=== PATIENT | male | born 1955 | race Caucasian/White ===

== ENCOUNTER 2020-08-04 07:46 | Day surgery (SDC) | payer BC ==
[~2020-08-04 07:46] MED LIST: Lactated Ringers 1,000 ML IV SCH
[2020-08-04] MEDS ORDERED: Propofol 200 MG/20 ML SDV ONE ×2 (08:02→09:23)
[2020-08-04] MEDS ORDERED: Midazolam 1 MG/ML 2 ML SDV ONE (08:02)
[2020-08-04] MEDS ORDERED: fentaNYL 100 MCG/2 ML SDV ONE (08:02)
--- NOTE | 2020-08-04 08:31 | PCM.PREANE ---
Preanesthetic Assessment - Anesthesia/Transfusion/Family Hx Anesthesia History: Prior Anesthesia Without Reaction Family History of Anesthesia Reaction: No Transfusion History: No Prior Transfusion(s) Intubation History: Unknown - Review of Systems General: No Symptoms Pulmonary: No Symptoms Cardiovascular: No Symptoms Gastrointestinal: Other (h/o tubular adenoma '14, redundant colon unable to complate colonoscopy) Neurological: No Symptoms Other: Reports: None - Physical Assessment Height: 5 ft 8 in Weight: 83.461 kg ASA Class: 2 Mental Status: Alert & Oriented x3 Airway Class: Mallampati = 2 Dentition: Reports: Partial (partial - fixed) Thyro-Mental Finger Breadths: 3 Mouth Opening Finger Breadths: 3 ROM/Head Extension: Full Lungs: Clear to Auscultation, Normal Respiratory Effort Cardiovascular: Regular Rate, Regular Rhythm - Allergies Allergies/Adverse Reactions: Allergies Allergy/AdvReac Type Severity Reaction Status Date / Time amoxicillin Allergy Diarrhea Verified 08/01/20 09:08 - Blood Blood Available: No - Anesthesia Plan Pre-Op Medication Ordered: None - Acknowledgements Anesthesia Type Planned: MAC Pt an Appropriate Candidate for the Planned Anesthesia: Yes Alternatives and Risks of Anesthesia Discussed w Pt/Guardian: Yes Pt/Guardian Understands and Agrees with Anesthesia Plan: Yes PreAnesthesia Questionnaire HEENT History: Reports: Cataract, Other (See Below) Other HEENT History: uses reading glasses, has upper permanent partial denture Cardiovascular History: Reports: Afib (h/o A. fib. - OK since ablation), Hypertension Respiratory History: Reports: Sleep Apnea Other Respiratory History: uses CPAP every night Gastrointestinal History: Reports: Colon Polyp, Other (See Below) (redundant colon) Musculoskeletal History: Reports: Back Pain, Chronic Neurological History: Reports: Concussion - Past Surgical History Head Surgeries/Procedures: Reports: None HEENT Surgical History: Reports: Cataract Surgery, LASIK, Naso-Sinus Surgery, Tonsillectomy Other HEENT Surgeries/Procedures: repair of deviated septum Cardiovascular Surgical History: Reports: Cardiac Ablation Other Cardiovascular Surgeries/Procedures: has cardiac ablation for A-Fib GI Surgical History: Reports: Colonoscopy (x2) - SUBSTANCE USE Tobacco Use Status *Q: Former Tobacco User Tobacco Use Within Last Twelve Months: No Recreational Drug Use History: No - HOME MEDS Home Medications: Home Meds Aspirin 325 mg PO DAILY 07/22/20 [History] Cholecalciferol (Vitamin D3) [Vitamin D3] 1,000 unit PO DAILY 07/22/20 [History] Glucosam/Chond/Collagen/Hyalur [Glucosamine Chondroitin] 1 cap PO DAILY 07/22/20 [History] atenoloL [Atenolol] 50 mg PO QAM 07/22/20 [History] - CURRENT (IN HOUSE) MEDS Current Meds: Current Medications Lactated Ringer's (Ringers, Lactated) 1,000 mls @ 125 mls/hr IV ASDIRECTED GEORGE Discontinued Medications Fentanyl (Sublimaze) Confirm Administered Dose 100 mcg .ROUTE .STK-MED ONE Stop: 08/04/20 08:03 Lidocaine HCl (Xylocaine-Mpf 1%) Confirm Administered Dose 5 ml .ROUTE .STK-MED ONE Stop: 08/04/20 08:09 Midazolam HCl (Versed 1 Mg/Ml) Confirm Administered Dose 2 mg .ROUTE .STK-MED ONE Stop: 08/04/20 08:03 Propofol (Diprivan 20 Ml) Confirm Administered Dose 400 mg .ROUTE .STK-MED ONE Stop: 08/04/20 08:03
--- NOTE | 2020-08-04 09:46 | PCM.OPNOTE ---
- General Post-Op/Procedure Note Date of Surgery/Procedure: 08/04/20 Operative Procedure(s): Colonoscopy and polypectomy Findings: colon polyps, dictation #[id number] Pre Op Diagnosis: Family history of colon cancer. History of colon polyps Post-Op Diagnosis: colon polyps Anesthesia Technique: Moderate Sedation Primary Surgeon: Juan Bullock Pathology: colon polyps Complications: None Condition: Good
--- NOTE | 2020-08-04 10:14 | PCM.POSTAN ---
POST ANESTHESIA ASSESSMENT - MENTAL STATUS Mental Status: Alert, Oriented - VITAL SIGNS Vital Signs: Last Vital Signs Temp 36.6 C 08/04/20 08:15 Pulse 69 08/04/20 10:01 Resp 10 L 08/04/20 10:01 BP 120/84 08/04/20 10:01 Pulse Ox 92 L 08/04/20 10:01 - RESPIRATORY Respiratory Status: Respiratory Rate WNL, Airway Patent, O2 Saturation Stable - CARDIOVASCULAR CV Status: Pulse Rate WNL, Blood Pressure Stable - GASTROINTESTINAL GI Status: No Symptoms - PAIN Pain Score: 0 - POST OP HYDRATION Hydration Status: Adequate & Stable - OBSERVATIONS Free Text/Narrative:: No anesthesia problems
--- NOTE | 2020-08-04 10:44 | PCM48HPAN ---
Post Anesthesia Note - EVALUATION WITHIN 48HRS OF ANESTHETIC Vital Signs in Normal Range: Yes Patient Participated in Evaluation: Yes Respiratory Function Stable: Yes Airway Patent: Yes Cardiovascular Function Stable: Yes Hydration Status Stable: Yes Pain Control Satisfactory: Yes Nausea and Vomiting Control Satisfactory: Yes Mental Status Recovered: Yes Vital Signs: Last Vital Signs Temp 36.6 C 08/04/20 08:15 Pulse 69 08/04/20 10:01 Resp 10 L 08/04/20 10:01 BP 120/84 08/04/20 10:01 Pulse Ox 92 L 08/04/20 10:01 - COMMENTS/OBSERVATIONS Free Text/Narrative:: No anesthesia problems
--- NOTE | 2020-08-04 14:52 | OR ---
SURGEON: NAVYA BUCKLEY MD DATE OF PROCEDURE: 08/04/2020 PREOPERATIVE DIAGNOSES: 1. History of colon polyps. 2. Family history of colon cancer. PROCEDURE PERFORMED: 1. Colonoscopy. 2. Snare polypectomy. 3. Cold biopsy polypectomy. PRIMARY SURGEON: Navya Buckley MD ANESTHESIA: General with anesthesiologist. EXTENT OF COLONOSCOPY: To the cecum. WITHDRAWAL TIME: 20 minutes. LIMITATIONS: None. BOWEL PREP: Very good. REASON FOR PROCEDURE: The patient is a pleasant 65-year-old gentleman whose last colonoscopy was in 2013 when he had a tubular adenoma removed. They were unable to get to the cecum on this colonoscopy, so he did have an imaging done which showed a redundant colon. There is a family history of colon cancer with a sister with colon cancer in her 50s. Denies any blood in the stool. PROCEDURE IN DETAIL: Physical examination was performed. Major risks and benefits associated with the procedure explained to the patient in detail. I did explain that we may not get to the end unable to get there in the past. The patient verbalized understanding of the same. The patient was then connected to appropriate monitoring devices and IV started. EKG, pulse, pulse oximetry, blood pressure, and capnography were monitored throughout the entire procedure. Continuous oxygen and sedation were provided by the anesthesiologist. The patient was placed in left lateral decubitus position. Sedation was began. After adequate sedation was achieved, digital rectal exam was performed. No rectal masses or polyps were felt. Now, a well-lubricated Olympus colonoscope was entered in the rectum and advanced under direct visualization to the level of the cecum. Cecum was identified by both visual and anatomic landmarks. Photographs were taken of the cecal cap. The scope was then slowly withdrawn in somewhat circular fashion looking at the color, texture, anatomy, and integrity of the mucosa from the cecum to the anal canal. The patient had a very good bowel prep with some very minimal liquid stool, which was suctioned and irrigated out with excellent look at the mucosa. The patient did have a small sessile polyp of 35 cm and was removed with cold snare polypectomy. There was good hemostasis. Scope was continued to be withdrawn. He had 2 smaller polyps at 15 cm; 1 was removed with snare polypectomy and 1 was removed with a cold biopsy polypectomy. Both had good hemostasis, both were completely removed. Scope was retroflexed in the rectum. Scope was completely removed and the procedure was terminated. ENDOSCOPIC DIAGNOSIS: Colon polyps, 1 at 35 cm and another 2 at 15 cm, all removed. RECOMMENDATIONS: Followup colonoscopy will depend on pathology, but most likely another one in 5 years, sooner if he develops signs or symptoms such as change in bowel habits or blood in the stool. JUAN RAMON / JORDIN /[id number]
== END 2020-08-04 10:50 | disposition home or self-care (01) ==
LOC: MW.SDS 07:46
PROVIDERS: ATTEND Surgery
DX: Z12.11 Encounter for screening for malignant neoplasm of colon (principal); D12.6 Benign neoplasm of colon, unspecified; I10 Essential (primary) hypertension; G47.30 Sleep apnea, unspecified; I48.91 Unspecified atrial fibrillation; Z79.82 Long term (current) use of aspirin; Z80.0 Family history of malignant neoplasm of digestive organs; Z79.899 Other long term (current) drug therapy; Z87.891 Personal history of nicotine dependence; Z88.0 Allergy status to penicillin
CPT/HCPCS: 45380; 45385; J2001; J2250; J2704; J3010; J7120; 00812; 88305

== ENCOUNTER 2025-09-03 08:53 | Day surgery (SDC) | payer MEDICARE, BC ==
[2025-09-03] MEDS ORDERED: Propofol 200 MG/20 ML SDV ONE (09:09)
[2025-09-03] MEDS: Lactated Ringers 1,000 ML IV SCH (09:30)
[2025-09-03] MEDS ORDERED: Lactated Ringers 1,000 ML IV SCH (10:45)
== END 2025-09-03 11:17 | disposition home or self-care (01) ==
LOC: MW.SDS 08:53
PROVIDERS: ATTEND Surgery
DX: Z12.11 Encounter for screening for malignant neoplasm of colon (principal); I10 Essential (primary) hypertension; E11.9 Type 2 diabetes mellitus without complications; I48.91 Unspecified atrial fibrillation; Z80.0 Family history of malignant neoplasm of digestive organs; Z79.01 Long term (current) use of anticoagulants; Z79.899 Other long term (current) drug therapy; Z87.891 Personal history of nicotine dependence; Z86.0101 Personal history of adenomatous and serrated colon polyps
CPT/HCPCS: G0105; J2003; J2704; J7120; 00811